=== PATIENT | male | born 1980 | race Two or more races ===

== ENCOUNTER 2019-11-16 10:07 | Emergency (ER) | payer MEDICAID ==
[~2019-11-16] VITALS: Ht 165.1 cm; Wt 74.4 kg
--- NOTE | 2019-11-16 10:15 | NUR ---
AMBULATORY TO ER BED 01 C/O R EYE PAIN SINCE THIS AM AFTER MOVING BOXES. CONCERN ABOUT SAW DUST IN HIS EYES. DENIES VISON LOSS BUT STATES PAINFUL TO KEEP EYE OPEN. STABLE VITALS. AWAITING MD WARD.
[2019-11-16] MEDS ORDERED: FLUORESCEIN SODIUM OPHTH 1 EA STRIP ONE (10:43)
[2019-11-16] MEDS ORDERED: FLUORESCEIN SODIUM OPHTH 1 EA STRIP OP ONE (11:00)
[2019-11-16 11:12] VITALS: BP 128/81
--- NOTE | 2019-11-16 11:12 | NUR ---
Patient discharged to home in stable condition. Written and verbal after care instructions given. Patient verbalizes understanding of instruction.
== END 2019-11-16 11:12 | disposition home or self-care (01) ==
LOC: ER 10:10
DX: T15.01XA Foreign body in cornea, right eye, initial encounter (principal); X58.XXXA Exposure to other specified factors, initial encounter; Y93.89 Activity, other specified; Y92.89 Other specified places as the place of occurrence of the external cause; Y99.8 Other external cause status